=== PATIENT | female | born 1995 | race Hispanic/Latino ===

== ENCOUNTER 2020-09-17 13:59 | Outpatient (CLI) | payer BC | END 2020-09-17 14:00 | disposition home or self-care (01) | LOC: BICULT 13:59 | DX: R22.31 Localized swelling, mass and lump, right upper limb (principal) ==

== ENCOUNTER 2020-11-04 11:41 | Outpatient (CLI) | payer BC | END 2020-11-04 11:42 | disposition home or self-care (01) | LOC: CT 11:41 | PROVIDERS: ATTEND Internal Medicine | DX: D72.10 Eosinophilia, unspecified (principal); R59.0 Localized enlarged lymph nodes | CPT/HCPCS: 71260 ==